=== PATIENT | male | born 1955 | race Caucasian/White ===

== ENCOUNTER → 2017-02-02 | Outpatient (CLI) | payer OTHER ==
[~2017-02-02] MED LIST: GADOBUTROL 10 MMOL/10 ML VIAL ONE; LIDOCAINE 1%, 20ML ONE; OMNIPAQUE 300 MG/ML, 10ML VIAL ONE; ROPIvacaine/PF 0.2%, 20 ML ONE
== END | disposition home or self-care (01) ==
LOC: CFH 14:45
PROVIDERS: ATTEND Orthopaedic Surgery
DX: S43.431A Superior glenoid labrum lesion of right shoulder, initial encounter (principal); M75.101 Unspecified rotator cuff tear or rupture of right shoulder, not specified as traumatic; M19.011 Primary osteoarthritis, right shoulder; M25.711 Osteophyte, right shoulder; X58.XXXA Exposure to other specified factors, initial encounter; Y93.89 Activity, other specified; Y92.89 Other specified places as the place of occurrence of the external cause; Y99.8 Other external cause status
CPT/HCPCS: 73040; 73222; A9585; J2795; J3490; Q9967

== ENCOUNTER → 2017-06-19 | Outpatient (CLI) | payer OTHER ==
[~2017-06-19] MED LIST changes: -GADOBUTROL 10 MMOL/10 ML VIAL ONE; -LIDOCAINE 1%, 20ML ONE; +None at this Time; -OMNIPAQUE 300 MG/ML, 10ML VIAL ONE; -ROPIvacaine/PF 0.2%, 20 ML ONE
== END | disposition home or self-care (01) ==
LOC: STAR 14:18
PROVIDERS: ATTEND Orthopaedic Surgery
DX: Z01.818 Encounter for other preprocedural examination (principal); M75.121 Complete rotator cuff tear or rupture of right shoulder, not specified as traumatic
CPT/HCPCS: 93005

== ENCOUNTER 2017-06-25 05:18 | Day surgery (SDC) | payer OTHER ==
[~2017-06-25] VITALS: Ht 175.3 cm; Wt 79.7 kg
[2017-06-25] MEDS ORDERED: LACTATED RINGERS 1,000 ML IV SCH (06:15)
[2017-06-25] MEDS ORDERED: EPINEPHRINE 1 MG/ML, 1ML ONE ×3 (06:16→08:36)
[2017-06-25] MEDS ORDERED: BUPIVACAINE/PF 0.25% ONE (06:16)
[2017-06-25] MEDS ORDERED: LIDOCAINE/PF 1%, 30ML ONE (06:16)
[2017-06-25] MEDS ORDERED: MIDAZOLAM 1 MG/ML, 2ML ONE (06:23)
[2017-06-25] MEDS ORDERED: FENTANYL PF 100 MCG/2ML ONE (06:23)
[2017-06-25] MEDS ORDERED: KETOROLAC 30 MG/1 ML ONE (06:52)
[2017-06-25] MEDS ORDERED: CEFAZOLIN 1,000 MG ONE (08:39)
[2017-06-25] MEDS ORDERED: ONDANSETRON 2MG/ML, 2ML ONE (08:39)
[2017-06-25] MEDS ORDERED: ROCURONIUM 10 MG/ML,10ML ONE (08:39)
[2017-06-25] MEDS ORDERED: DEXAMETHASONE 4 MG/ML, 1ML ONE (08:39)
[2017-06-25] MEDS ORDERED: PROPOFOL 10 MG/ML, 20ML ONE (08:39)
[2017-06-25] MEDS ORDERED: SUCCINYLCHOLINE 20 MG/ML, 10ML ONE (08:39)
[2017-06-25] MEDS ORDERED: MIDAZOLAM 1 MG/ML, 2ML IV PRN (09:00)
[2017-06-25] MEDS ORDERED: METOPROLOL 1 MG/ML, 5ML IV PRN (09:00)
[2017-06-25] MEDS ORDERED: OXYcodone 5 MG/5 ML ORAL.SOL UDC PO PRN (09:00)
[2017-06-25] MEDS ORDERED: FENTANYL PF 100 MCG/2ML IV PRN (09:00)
[2017-06-25] MEDS ORDERED: hydrALAzine 20 MG/ML, 1ML IV PRN (09:00)
[2017-06-25] MEDS ORDERED: EPHEDRINE 50 MG/ML, 1ML IVPush PRN (09:00)
[2017-06-25] MEDS ORDERED: ALBUTEROL SULFATE 2.5 MG/3 ML NPPB PRN (09:00)
[2017-06-25] MEDS ORDERED: ACETAMINOPHEN 325 MG TABLET PO PRN (09:00)
[2017-06-25] MEDS ORDERED: ONDANSETRON 2MG/ML, 2ML IVPush PRN (09:00)
[2017-06-25] MEDS ORDERED: HYDROmorphone 1 MG/ML, 1ML IV PRN (09:00)
[2017-06-25] MEDS ORDERED: PROMETHAZINE 25 MG/ML, 1ML IV PRN (09:00)
[2017-06-25] MEDS ORDERED: MEPERIDINE/PF 25MG/0.5ML IVPush PRN (09:00)
[2017-06-25] MEDS ORDERED: DIAZEPAM 5 MG/ML, 2ML IVPush PRN (09:00)
[2017-06-25] MEDS ORDERED: HYDROcodone/APAP 7.5-325MG/15ML UDC PO PRN (09:00)
[2017-06-25] MEDS ORDERED: LABETALOL 5MG/ML, 20ML IV PRN (09:00)
[2017-06-25] MEDS ORDERED: ACETAMINOPHEN 650 MG/20.3 ML UDC ONE (09:25)
[2017-06-25] MEDS ORDERED: OXYcodone 5 MG/5 ML ORAL.SOL UDC ONE (09:26)
== END 2017-06-25 11:20 ==
LOC: OUT 05:18
PROVIDERS: ATTEND Orthopaedic Surgery
DX: M75.111 Incomplete rotator cuff tear or rupture of right shoulder, not specified as traumatic (principal)
CPT/HCPCS: 29824; 29827; C1713; J0171; J0330; J0690; J1100; J1885; J2250; J2405; J2704; J3010; J3490; J7120

== ENCOUNTER → 2017-12-21 | Outpatient (CLI) | payer OTHER | LOC: STAR 11:11 | PROVIDERS: ATTEND Orthopaedic Surgery | DX: Z01.818 Encounter for other preprocedural examination (principal); R94.31 Abnormal electrocardiogram [ECG] [EKG]; M75.121 Complete rotator cuff tear or rupture of right shoulder, not specified as traumatic | CPT/HCPCS: 87081; 93005 ==

== ENCOUNTER 2017-12-25 10:56 | Day surgery (SDC) | payer OTHER ==
[~2017-12-25] VITALS: Ht 175.3 cm; Wt 77.9 kg
[2017-12-25] MEDS ORDERED: LACTATED RINGERS 1,000 ML IV SCH (11:25)
[2017-12-25] MEDS ORDERED: OXYcodone IR 5MG TABLET PO ONE (11:30)
[2017-12-25] MEDS ORDERED: ONDANSETRON ODT 8 MG PO ONE (11:30)
[2017-12-25] MEDS ORDERED: FAMOTIDINE 20 MG TABLET PO ONE (11:30)
[2017-12-25] MEDS ORDERED: GABAPENTIN 300 MG CAPSULE PO ONE (11:30)
[2017-12-25] MEDS ORDERED: ACETAMINOPHEN 500 MG TABLET PO ONE (11:30)
[2017-12-25 11:47] VITALS: BP 111/71
[2017-12-25] MEDS ORDERED: LIDOCAINE/PF 1%, 30ML ONE (13:18)
[2017-12-25] MEDS ORDERED: EPINEPHRINE 1 MG/ML, 1ML ONE ×2 (13:18→14:41)
[2017-12-25] MEDS ORDERED: MIDAZOLAM 1 MG/ML, 2ML ONE (13:27)
[2017-12-25] MEDS ORDERED: FENTANYL PF 100 MCG/2ML ONE (13:27)
[2017-12-25] MEDS ORDERED: ROCURONIUM 10MG/ML,5ML ONE (13:28)
[2017-12-25] MEDS ORDERED: PROPOFOL 10 MG/ML, 20ML ONE (13:28)
[2017-12-25] MEDS ORDERED: KETOROLAC 30 MG/1 ML ONE (13:28)
[2017-12-25] MEDS ORDERED: SUCCINYLCHOLINE 20 MG/ML, 10ML ONE (13:28)
[2017-12-25] MEDS ORDERED: CEFAZOLIN 1,000 MG ONE (13:28)
[2017-12-25] MEDS ORDERED: EPHEDRINE 50 MG/ML, 1ML IVPush PRN (14:30)
[2017-12-25] MEDS ORDERED: MEPERIDINE/PF 25MG/0.5ML IVPush PRN (14:30)
[2017-12-25] MEDS ORDERED: MIDAZOLAM 1 MG/ML, 2ML IV PRN (14:30)
[2017-12-25] MEDS ORDERED: hydrALAzine 20 MG/ML, 1ML IV PRN (14:30)
[2017-12-25] MEDS ORDERED: HYDROcodone/APAP 7.5-325MG/15ML UDC PO PRN (14:30)
[2017-12-25] MEDS ORDERED: FENTANYL PF 100 MCG/2ML IV PRN (14:30)
[2017-12-25] MEDS ORDERED: ALBUTEROL SULFATE 2.5 MG/3 ML NPPB PRN (14:30)
[2017-12-25] MEDS ORDERED: OXYcodone 5 MG/5 ML ORAL.SOL UDC PO PRN (14:30)
[2017-12-25] MEDS ORDERED: PROMETHAZINE 25 MG/ML, 1ML IV PRN (14:30)
[2017-12-25] MEDS ORDERED: LABETALOL 5MG/ML, 20ML IV PRN (14:30)
[2017-12-25] MEDS ORDERED: ONDANSETRON ODT 8 MG PO PRN (14:30)
[2017-12-25] MEDS ORDERED: HYDROmorphone 2 MG/ML, 1ML IV PRN (14:30)
== END 2017-12-25 17:50 | disposition home or self-care (01) ==
LOC: OUT 10:56
PROVIDERS: ATTEND Orthopaedic Surgery
DX: S46.012A Strain of muscle(s) and tendon(s) of the rotator cuff of left shoulder, initial encounter (principal); S43.492A Other sprain of left shoulder joint, initial encounter; M19.012 Primary osteoarthritis, left shoulder; W19.XXXA Unspecified fall, initial encounter; Y93.89 Activity, other specified; Y92.89 Other specified places as the place of occurrence of the external cause; Y99.8 Other external cause status
CPT/HCPCS: 29824; 29827; 64415; C1713; J0171; J0330; J0690; J1885; J2250; J2704; J3010; J3490; J7120; Q0162